=== PATIENT | female | born 1990 | race African-American/Black ===

== ENCOUNTER 2016-08-22 15:56 | Emergency (ER) | payer OTHER, BC ==
[~2016-08-22] VITALS: Ht 175.3 cm; Wt 72.0 kg
[~2016-08-22 15:56] MED LIST: NO HOME MEDS; PERCOCET1 TA3 OR; PREVACID30 M1 OR; REGLAN10 MG OR
[2016-08-22] MEDS ORDERED: MOTRIN800 MG PO (16:41)
[2016-08-22] MEDS ORDERED: FLEXERIL PO (16:41)
[2016-08-22 16:46] VITALS: BP 122/75
== END 2016-08-22 17:00 | disposition home or self-care (01) | DRG 552 ==
LOC: ED 15:56
DX: S16.1XXA Strain of muscle, fascia and tendon at neck level, initial encounter (principal); V47.5XXA Car driver injured in collision with fixed or stationary object in traffic accident, initial encounter; Y92.411 Interstate highway as the place of occurrence of the external cause

== ENCOUNTER 2017-07-26 00:44 | Emergency (ER) | payer BC ==
[~2017-07-26] VITALS: Ht 175.3 cm; Wt 75.6 kg
[~2017-07-26 00:44] MED LIST changes: +FLEXERIL PO; +MOTRIN800 MG PO
[2017-07-26] MEDS ORDERED: AMOXICILLIN500 MG PO (02:56)
[2017-07-26] MEDS ORDERED: NAPROSYN500 MG PO (02:56)
[2017-07-26 03:15] VITALS: BP 117/57
== END 2017-07-26 03:43 | disposition home or self-care (01) | DRG 605 ==
LOC: ED 00:44
DX: S00.83XA Contusion of other part of head, initial encounter (principal); S00.511A Abrasion of lip, initial encounter; S60.221A Contusion of right hand, initial encounter; F32.9 Major depressive disorder, single episode, unspecified; Y04.0XXA Assault by unarmed brawl or fight, initial encounter; Y92.89 Other specified places as the place of occurrence of the external cause